=== PATIENT | female | born 1940 | race Caucasian/White ===

== ENCOUNTER 2022-04-22 18:12 | Inpatient (IN) ==
--- NOTE | 2022-04-22 18:29 | Emergency Department Note ---
Fall HPI General Chief Complaint: Trauma Stated Complaint: Fall Time Seen by Provider: 04/22/22 18:19 Source: patient and EMS Mode of arrival: EMS Limitations: no limitations History of Present Illness HPI Narrative: Narrative: Patient presents ED via EMS with complaints of a fall. P states she was walking and she tripped on a curb. She reports pain in her left hip, femur and ankle. Overall pain is rated 4/10. She denies head trauma, loss of consciousness, vision changes, headaches, dizziness, lightheadedness, extremity weakness, extremity numbness, loss of sensation, bowel or bladder incontinence, back pain. She denies any [id number] medication. She denies any other alleviating or aggravating factors. Related Data Home Medications Medication Instructions Recorded Confirmed calcium carbonate 600 mg-vitamin 1 each PO DAILY 07/24/15 04/22/22 D3 20 mcg (800 unit) tablet denosumab 60 mg/mL subcutaneous 60 mg SQ Q6M 07/24/15 04/22/22 syringe metoprolol succinate 25 mg 50 mg PO DAILY 07/24/15 04/22/22 tablet,extended release 24 hr pravastatin 40 mg tablet 40 mg PO HS 07/24/15 04/22/22 calcium carbonate 500 mg calcium 1,200 mg PO QDAY 06/23/20 04/22/22 (1,250 mg) tablet (Calcium 500) Allergies Allergy/AdvReac Type Severity Reaction Status Date / Time No Known Drug Allergies Allergy Verified 04/22/22 18:15 Review of Systems ROS ROS Narrative: Narrative: All systems ED: reviewed and negative except as stated. [facility] Narrative Patient History Narrative: Narrative: Medical/Surgical/Family History All Active Problems (Updated 04/22/22 @ 19:24 by Phillip Pillai DO) Closed intertrochanteric fracture (Acute) Fall (Acute) Tongue pain (Acute) Hyperlipidemia (Acute) Hypertension (Acute) Osteoporosis (Acute) Social History Smoking Status: Never smoker Alcohol Intake Frequency: does not drink Substance Use: does not use Exam Narrative Narrative: Narrative: General Limitations: no limitations General appearance: Present alert Head Head: Present atraumatic and normocephalic Eye Eye: Present PERRL and EOMI Neck Neck: Present normal inspection and full ROM; Absent tenderness Chest Chest: Present normal inspection; Absent tenderness Respiratory Respiratory: Present normal lung sounds bilaterally; Absent respiratory distress Cardiovascular Cardiovascular: Present regular rate and normal rhythm Adbominal Abdominal: Present soft; Absent tenderness Extremities Extremities: Present tenderness (Left hip, femur and left ankle) and joint swelling (Mild left ankle) Back Back: Present normal inspection; Absent L-S tenderness Neurological Neurological: Present oriented X3 Psychiatric Psychiatric: Present normal affect Skin Skin: Present warm (WNL) and normal color Course Course Course Narrative: Patient was evaluated for left lower extremity pain status post fall. X-rays of the left femur and ankle obtained with image reviewed myself no acute bony abnormality. X-ray of the bilateral hips obtained with image reviewed myself which shows a left intertrochanteric fracture. Case was discussed with orthopedic surgery recommend that patient be admitted for surgical correction tomorrow. Patient will be made NPO. Pain management antiemetics have been ordered. Patient is in agreement with plan. Unfortunately do not have any beds available right now so patient will be held in the ED until the morning at which time she will be admitted to Dr. Burrell take him to surgery later in the day. Consultations Consultation #1: Case discussed with on-call orthopedic surgeon, Dr. Burrell, who recommends that patient be admitted and he will perform surgery tomorrow. Time: 19:24 Vital Signs Vital signs: Vital Signs Temperature 99.4 F H 04/22/22 18:15 Pulse Rate 79 04/22/22 18:15 Respiratory Rate 16 04/22/22 18:15 Blood Pressure 114/64 04/22/22 18:15 Pulse Oximetry (%) 97 04/22/22 18:15 Oxygen Delivery Method 04/22/22 18:15 Temperature 99.4 F H 04/22/22 18:15 Pulse Rate 70 04/23/22 03:25 Respiratory Rate 16 04/22/22 18:15 Blood Pressure 113/66 04/23/22 02:16 Pulse Oximetry (%) 95 04/23/22 03:25 Oxygen Delivery Method 04/22/22 18:15 [facility] MDM Narrative Medical decision making narrative: Narrative: Differential Diagnosis Differential Diagnosis: Hip fracture, femur fracture, ankle fracture, ankle sprain, fall Medical Records Medical records reviewed: Yes I reviewed the patient's medical records. Lab Data Result diagrams: 04/22/22 19:43 Labs: Lab Results 04/22/22 04/22/22 Range/Units 19:43 19:48 WBC 8.2 (4.5-11.0) K/mcL RBC 4.10 (3.59-5.38) M/mcL Hgb 12.1 (11.2-15.7) g/dL Hct 35.8 (34.1-44.9) % POC Hct 35.0 L (36-48) MCV 87.3 (80.0-100.0) fL MCH 29.5 (26.0-34.0) pg MCHC 33.8 (31.0-36.0) g/dL RDW 12.8 (11.5-14.5) % Plt Count 146 (140-440) K/mcL MPV 10.4 (7.4-10.4) fL Immature Gran % (Auto) 0.4 (0.0-0.5) % Neut % (Auto) 76.6 (38.0-78.0) % Lymph % (Auto) 14.4 L (15.5-49.0) % Kemper % (Auto) 6.8 (1.0-12.0) % Eos % (Auto) 1.3 (0.0-7.0) % Baso % (Auto) 0.5 (0.0-2.0) % Lymph # (Auto) 1.18 L (1.50-4.80) K/mcL Kemper # (Auto) 0.56 (0.10-0.90) K/mcL Eos # (Auto) 0.11 (0.00-0.70) K/mcL Baso # (Auto) 0.04 (0.00-0.30) K/mcL Immature Gran # 0.03 (0.00-0.05) K/mcl Absolute Neutrophils 6.30 (1.80-8.00) K/mcL POC Sodium 140 (133-145) POC Potassium 3.8 (3.3-5.1) POC Chloride 104 (96-108) POC Total CO2 22.0 (22-30) POC BUN 18 (6-20) POC Creatinine 0.8 (0.6-1.2) POC Glucose 110 H (70-105) POC WB Ioniz Calcium 1.28 (1.16-1.32) Radiology Data Radiology results reviewed: Yes I reviewed the patient's radiology results. Radiology results narrative: X-ray of the bilateral hips obtained with image reviewed myself which revealed a left intertrochanteric fracture X-ray of the left femur and ankle obtained with image reviewed myself with no acute bony abnormality other than the previously mentioned left intertrochanteric fracture. Chest x-ray obtained with image reviewed myself with no acute cardiopulmonary findings Core Measures AMI Core Measures Followed: Yes Discharge Plan Patient/Caregiver Discharge Instructions Pt seen by TAP OUT OPERATOR/PA only: No Clinical Impression: Closed intertrochanteric fracture Qualifiers: Encounter type: initial encounter Fracture alignment: displaced Laterality: left Qualified Code(s): S72.142A - Displaced intertrochanteric fracture of left femur, initial encounter for closed fracture Fall Qualifiers: Encounter type: initial encounter Qualified Code(s): W19.XXXA - Unspecified fall, initial encounter Patient Disposition: Xfer As Outpt/Obs ([facility]) Condition: Good Follow up with: Chrissie Logan MD [Primary Care Provider] - Prescriptions: No Action pravastatin 40 MG tablet 40 mg PO HS metoprolol succinate 25 MG tablet extended release 24 hr 50 mg PO DAILY denosumab 60 MG/ML syringe 60 mg SQ Q6M calcium carbonate-vitamin D3 1 EACH tablet 1 each PO DAILY calcium carbonate [Calcium 500] 500 mg calcium (1,250 mg) Tablet 1,200 mg PO QDAY
[2022-04-22] MEDS ORDERED: HYDROCODONE/APAP 7.5/325MG TABLET PO ONE (18:45)
--- NOTE | 2022-04-22 19:15 | XRay Report ---
INDICATION: hip fx TECHNIQUE: AP portable semiupright chest x-ray COMPARISON: Previous examination dated 02/16/2016 FINDINGS: Lungs:Lungs are negative. No focal pulmonary parenchymal infiltrate or mass Heart, vascular:No significant cardiomegaly. Pulmonary vascularity is normal. No pulmonary edema or pulmonary congestion Mediastinum, brian:No mediastinal widening. No hilar mass Pleura:No pleural fluid. No pleural-based mass or calcification Musculoskeletal:Surgical clips in the left axilla IMPRESSION: No acute abnormality Interpreted and Authenticated by: Eladio George 04/22/22
--- NOTE | 2022-04-22 19:17 | XRay Report ---
INDICATION: pain TECHNIQUE: AP pelvis. Bilateral crosstable lateral hip COMPARISON: None. FINDINGS: Impacted intertrochanteric left hip fracture with varus angulation. Right hip is negative. Pelvis is negative. No fracture. No lytic lesion. Sacrum is negative IMPRESSION: Intertrochanteric left hip fracture Interpreted and Authenticated by: Eladio George 04/22/22
--- NOTE | 2022-04-22 19:18 | XRay Report ---
INDICATION: pain TECHNIQUE: AP and crosstable lateral left femur COMPARISON: Pelvis and bilateral hips dated 04/22/2022 FINDINGS: Impacted left intertrochanteric hip fracture. Left femur is otherwise negative. No other abnormality IMPRESSION: 1. Intertrochanteric left hip fracture 2. Otherwise negative left femur Interpreted and Authenticated by: Eladio George 04/22/22
--- NOTE | 2022-04-22 19:19 | XRay Report ---
INDICATION: pain TECHNIQUE: AP, oblique, lateral left ankle COMPARISON: None FINDINGS: Skeletal: Distal tibia and fibula are negative. No fracture. Talus and calcaneus are normal. No osteochondral lesion of the talus Joint spaces: Tibiotalar joint space is normal. Subtalar joint is normalNo significant tibiotalar joint effusion Periarticular soft tissue: No significant periarticular soft tissue swelling. No soft tissue gas or radiopaque foreign body IMPRESSION: Negative left ankle Interpreted and Authenticated by: Eladio George 04/22/22
[2022-04-22] MEDS ORDERED: ONDANSETRON 4 MG/2 ML VIAL IV ONE (19:28)
[2022-04-22] MEDS ORDERED: fentaNYL 100 MCG/2 ML VIAL IV PRN (19:28)
[2022-04-22] MEDS: 0.9 % SODIUM CHLORIDE 1,000 ML IV SCH (19:35)
[2022-04-22 19:50] LABS: POC Calcium, Ionized 1.28 (1.16-1.32); POC Creatinine 0.8 (0.6-1.2); POC Potassium 3.8 (3.3-5.1)
[2022-04-22 20:13] LABS: Basophils # (Auto) 0.04 K/mcL (0.00-0.30); Basophils % (Auto) 0.5 % (0.0-2.0); Eosinophils # (Auto) 0.11 K/mcL (0.00-0.70); Eosinophils % (Auto) 1.3 % (0.0-7.0); Hematocrit 35.8 % (34.1-44.9); Hemoglobin 12.1 g/dL (11.2-15.7); Lymphocytes # (Auto) 1.18 K/mcL (1.50-4.80); Lymphocytes % (Auto) 14.4 % (15.5-49.0); Mean Cell Volume 87.3 fL (80.0-100.0); Mean Corpuscular HGB Conc 33.8 g/dL (31.0-36.0); Mean Platelet Volume 10.4 fL (7.4-10.4); Monocytes # (Auto) 0.56 K/mcL (0.10-0.90); Monocytes % (Auto) 6.8 % (1.0-12.0); Neutrophils % (Auto) 76.6 % (38.0-78.0); Platelet Count 146 K/mcL (140-440); Red Cell Distribution Width 12.8 % (11.5-14.5); WBC 8.2 K/mcL (4.5-11.0)
[2022-04-23] MEDS: 0.9 % SODIUM CHLORIDE 1,000 ML IV SCH (08:43)
[2022-04-23 09:00] LABS: Appearance,Urine Clear (Clear); Bacteria,Urine 0 /hpf (0); Bilirubin,Urine Negative (Negative); Color,Urine Yellow; Culture Indicated,Urine No; Glucose,Urine (UA) Negative (Negative); Ketones,Urine 15 mg/dL mg/dL (Negative); Leukocyte Esterase,Urine Negative /uL (Negative); Mucus,Urine Mod /hpf; Nitrate,Urine Negative (Negative); Protein,Urine Negative (Negative); Urine Blood Small ery/mcL (Negative); Urine Hyaline Cast 1 /lph (0-2); Urine RBC 3 /hpf (0-3); Urine Squamous Epithelial Cell 1 /hpf (0-4); Urine WBC 2 /hpf (0-4); Urobilinogen,Urine Normal
[2022-04-23] MEDS ORDERED: SCOPOLAMINE 1 PATCH PATCH TOPICAL PRN (10:18)
[2022-04-23] MEDS ORDERED: IPRATROPIUM/ALBUTEROL 3 ML AMPUL.NEB NEB PRN ×2 (10:18→16:30)
[2022-04-23] MEDS ORDERED: LIDOCAINE HCL/PF 100 MG/5 ML SYRINGE IV ONE (15:55)
[2022-04-23] MEDS ORDERED: KETAMINE 50 MG/ML Syringe (ANEST) IV ONE (15:55)
[2022-04-23] MEDS ORDERED: HYDROmorphone 1 MG/ML SYRINGE ONE (15:55)
[2022-04-23] MEDS ORDERED: fentaNYL 100 MCG/2 ML VIAL IV ONE (15:55)
[2022-04-23] MEDS ORDERED: ONDANSETRON 4 MG/2 ML VIAL ONE (15:55)
[2022-04-23] MEDS ORDERED: PROPOFOL 200 MG/20 ML VIAL IV ONE (15:55)
[2022-04-23] MEDS ORDERED: GLYCOPYRROLATE 0.2 MG/ML VIAL IV ONE (15:55)
[2022-04-23] MEDS ORDERED: TRANEXAMIC ACID 1,000 MG/10 ML VIAL ONE (15:55)
[2022-04-23] MEDS ORDERED: DEXAMETHASONE 10 MG/ML VIAL ONE (15:55)
[2022-04-23] MEDS ORDERED: ceFAZolin 2 GM in DEXTROSE 5% IN WATER 50 ML IV SCH (16:00)
[2022-04-23] MEDS ORDERED: fentaNYL 100 MCG/2 ML VIAL IV PRN (16:30)
[2022-04-23] MEDS ORDERED: METOPROLOL TARTRATE 5 MG/5 ML VIAL IV PRN (16:30)
[2022-04-23] MEDS ORDERED: METHOCARBAMOL 1,000 MG/10 ML VIAL IV PRN (16:30)
[2022-04-23] MEDS ORDERED: NALOXONE HCL 0.4 MG/ML VIAL IV PRN (16:30)
[2022-04-23] MEDS ORDERED: ONDANSETRON 4 MG/2 ML VIAL IV PRN ×3 (16:30→16:45)
[2022-04-23] MEDS ORDERED: MEPERIDINE 25 MG/ML VIAL IV PRN (16:30)
[2022-04-23] MEDS ORDERED: ACETAMINOPHEN 1,000 MG/100 ML BAG IV ONE (16:30)
[2022-04-23] MEDS ORDERED: HYDROmorphone 0.5 MG/0.5 ML SYRINGE IV PRN (16:30)
[2022-04-23] MEDS ORDERED: LACTATED RINGERS 1,000 ML IV SCH (16:30)
[2022-04-23] MEDS ORDERED: LABETALOL 5 MG/ML ML IV PRN (16:30)
[2022-04-23] MEDS ORDERED: LACTATED RINGERS 250 ML IV PRN (16:30)
[2022-04-23] MEDS ORDERED: TEMAZEPAM 15 MG CAPSULE PO PRN (16:45)
[2022-04-23] MEDS ORDERED: ACETAMINOPHEN 325 MG TABLET PO PRN (16:45)
[2022-04-23] MEDS ORDERED: FLEETS ADULT ENEMA PR PRN (16:45)
[2022-04-23] MEDS ORDERED: POLYETHYLENE GLYCOL 3350 17 GM PACKET PO PRN (16:45)
[2022-04-23] MEDS ORDERED: BISACODYL 10 MG SUPP.RECT PR PRN (16:45)
[2022-04-23] MEDS ORDERED: HYDROmorphone 1 MG/ML SYRINGE IV PRN (16:45)
[2022-04-23] MEDS ORDERED: MAGNESIUM HYDROXIDE 30 ML ORAL.SUSP PO PRN (16:45)
[2022-04-23] MEDS ORDERED: TRANEXAMIC ACID 1,000 MG/10 ML VIAL IV ONE (16:45)
--- NOTE | 2022-04-23 16:58 | XRay Report ---
INDICATION: hip nail TECHNIQUE: Open reduction and internal fixation of left intertrochanteric hip fracture. Gamma nail placement performed. 0.3 minutes fluoroscopy and 3.19 mGy exposure utilized IMPRESSION: 1. Open reduction and internal fixation of intertrochanteric left hip fracture 2. Intraoperative fluoroscopy and spot films as above Interpreted and Authenticated by: Eladio George 04/23/22
--- NOTE | 2022-04-23 16:58 | Brief Operative Note ---
Brief Operative Note Date of procedure: 04/23/22 Pre-op diagnosis: Left hip fracture Post-op diagnosis: same Procedure: left hip orif gamma nail Grafts/Implants: Yes Anesthesia: GETA Complications: none Surgeon: Gene Tavarez Parts Designer: Umberto Miller Estimated blood loss (cc): 130 Specimens Removed/Pathology: none sent Condition: stable Disposition: PACU
[2022-04-23] MEDS ORDERED: DENOSUMAB 60 MG/ML SYRINGE SQ SCH (17:00)
--- NOTE | 2022-04-23 17:42 | XRay Report ---
INDICATION: Post-Op Total Hip TECHNIQUE: AP pelvis. AP and crosstable lateral left hip COMPARISON: Preoperative evaluation dated 04/22/2022 FINDINGS: Status post open reduction and internal fixation of left intertrochanteric hip fracture. Gamma nail configuration utilized. Fractures of the greater and lesser trochanters are demonstrated. Alignment is essentially anatomic. There is soft tissue gas and skin kandy. 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 Pelvis is negative. No pelvic fracture. No sacral fracture. IMPRESSION: Open reduction and internal fixation of left intertrochanteric hip fracture. Fractures of the greater and lesser trochanters are demonstrated. Interpreted and Authenticated by: Eladio George 04/23/22
[2022-04-23] MEDS: LACTATED RINGERS 1,000 ML IV SCH ×2 (17:46→22:26)
[2022-04-23] MEDS: SIMVASTATIN 20 MG TABLET PO SCH (20:35)
[2022-04-23] MEDS: DOCUSATE SODIUM 100 MG CAPSULE PO SCH (20:35)
[2022-04-23] MEDS: ASPIRIN 81 MG TAB.CHEW CHEWED SCH (20:35)
[2022-04-23] MEDS: SENNOSIDES 1 TABLET PO SCH (20:35)
[2022-04-23] MEDS: ceFAZolin 1 GM VIAL IV SCH (23:45)
[2022-04-24] MEDS: LACTATED RINGERS 1,000 ML IV SCH ×2 (04:40→12:00)
--- NOTE | 2022-04-24 08:18 | Orthopedic Progress Note ---
SUBJECTIVE Subjective Patient information: Note initiated : 04/24/22 at 8:16 am Service Date, if different from initiated Date: [] Patient: Rica Allen 81 y/o F admitted on 04/23/22 for Gamma Hip Nailing. Chief Complaint: [no nausea] Principal diagnosis: left intertrochanteric hip fx Constitutional Vitals: Vital Signs Temp Pulse Resp BP Pulse Ox O2 Del Method O2 Flow Rate 98.1 F 80 16 146/62 95 0 04/24/22 03:18 04/24/22 03:18 04/24/22 03:18 04/24/22 03:18 04/24/22 06:41 04/24/22 06:41 04/23/22 17:24 Period Temp Pulse Resp BP Sys/Jackson Pulse Ox O2 Del Method O2 Flow Rate Last 24 Hr 97.6 F-98.8 F 76-96 16-20 102-146/56-70 93-99 Room Air-Room Air 0-6 Intake and Output 04/23/22 04/24/22 04/24/22 21:59 05:59 13:59 Intake Total 1352 1118 Output Total 550 800 Balance 802 318 Weight 134 lb 9.6 oz Intake & Output: Intake & Output 04/23/22 04/24/22 04/24/22 21:59 05:59 13:59 Intake Total 1352 1118 Output Total 550 800 Balance 802 318 Weight 134 lb 9.6 oz Intake: IV 152 998 Lactated Ringers 1,000 ml @ 100 2 998 mls/hr IV .Q10H SUSANNAH Rx#: [id number] Ancef 2 gm In Dextrose 5% in 50 Water 50 ml @ 100 mls/hr IV PREOP SUSANNAH Rx#:[id number] Oral 120 IV - Manual Only 1200 Output: Urine Catheter Amount 450 800 Void Amount 0 Estimated Blood Loss 100 Other: Meal Dinner Breakfast Percent of Meal Consumed 25% 100% Feeding Ability Independent Urine Appearance Clear Clear Urine Color Pale Straw Urine Odor Normal Normal Extremities Exam Extremities exam: Present normal capillary refill and neurovascular intact Neurological Exam Neurological exam: Present alert and CN II-XII intact OBJ DATA Labs CBC & Chem 7: 04/24/22 05:25 Labs: Abnormal Lab Results 04/24/22 04/23/22 04/22/22 05:25 08:05 19:48 Hct 31.1 L POC Hct 35.0 L Lymph % (Auto) Lymph # (Auto) POC Glucose 110 H Urine Ketones 15 mg/dl A Urine Occult Blood Small A Urine Mucus Mod A 04/22/22 19:43 Hct POC Hct Lymph % (Auto) 14.4 L Lymph # (Auto) 1.18 L POC Glucose Urine Ketones Urine Occult Blood Urine Mucus Meds: Medications Acetaminophen (Acetaminophen 325 Mg Tablet) 650 mg PO Q6HP PRN; Protocol PRN Reason: Per Pain Protocol/Fever > 101 Hydrocodone Bitart/Acetaminophen (Hydrocodone/Apap 10/325mg Tablet) 1 - 2 tab PO Q4HP PRN; Protocol PRN Reason: Per Pain Protocol Aspirin (Aspirin 81 Mg Tab.Chew) 81 mg CHEWED BID [facility] Last Admin: 04/23/22 20:35 Dose: 81 mg Bisacodyl (Bisacodyl 10 Mg Supp.Rect) 10 mg FL Q2-3DAYS PRN PRN Reason: Constipation Calcium Carbonate/Glycine (Calcium (Oyster Shell) 500 Mg Tablet) 1,000 mg PO QDAY [facility] Calcium/Vitamin D (Calcium W/Vit D3 500 Mg Tablet) 500 mg PO DAILY [facility] Docusate Sodium (Docusate Sodium 100 Mg Capsule) 100 mg PO BID [facility] Last Admin: 04/23/22 20:35 Dose: 100 mg Fentanyl (Fentanyl 100 Mcg/2 Ml Vial) 25 mcg IV Q2HP PRN; Protocol PRN Reason: Per Pain Protocol Last Admin: 04/23/22 01:43 Dose: 25 mcg Hydromorphone HCl (Hydromorphone 1 Mg/Ml Syringe) 0.5 - 2 mg IV Q2HP PRN; Protocol PRN Reason: Per Pain Protocol Lactated Ringer's (Lactated Ringers) 1,000 mls @ 100 mls/hr IV .Q10H [facility] Last Admin: 04/24/22 04:40 Dose: Not Given Magnesium Hydroxide (Magnesium Hydroxide 30 Ml Oral.Susp) 30 ml PO BIDP PRN PRN Reason: Constipation Metoprolol Succinate (Metoprolol Succinate 25 Mg Tab.Xl.24h) 50 mg PO DAILY [facility] Ondansetron HCl (Ondansetron 4 Mg/2 Ml Vial) 4 mg IV Q4HP PRN; Protocol PRN Reason: Nausea And Vomiting Ondansetron HCl (Ondansetron 4 Mg/2 Ml Vial) 4 mg IV Q4HP PRN; Protocol PRN Reason: Nausea And Vomiting Polyethylene Glycol (Polyethylene Glycol 3350 17 Gm Packet) 17 gm PO DAILYP PRN PRN Reason: Constipation Senna (Sennosides 1 Tablet) 2 tab PO HS [facility] Last Admin: 04/23/22 20:35 Dose: 2 tab Simvastatin (Simvastatin 20 Mg Tablet) 20 mg PO HS [facility] Last Admin: 04/23/22 20:35 Dose: 20 mg Sodium Biphosphate/Sodium Phosphate (Fleets Adult Enema) 1 dose FL Q3-4DAYS PRN PRN Reason: Constipation Temazepam (Temazepam 15 Mg Capsule) 15 mg PO HSP PRN PRN Reason: Insomnia A/P Assessment and plan (1) Closed intertrochanteric fracture: Status: Acute Comment: doing better Qualifiers: Encounter type: initial encounter Fracture alignment: displaced Laterality: left Qualified Code(s): S72.142A - Displaced intertrochanteric fracture of left femur, initial encounter for closed fracture Plan dc to home or snf Narrative Plan of Treatment: see how well she walks Time Spent With Patient Time: Total time spent is greater than 50% in coordination of care (as documented) at patient's floor/unit and/or counseling patient: Total time spent with greater than 50% in coordination of care (as documented) at patient's floor/unit and/or counseling patient:: less than 15 minutes
[2022-04-24] MEDS: ASPIRIN 81 MG TAB.CHEW CHEWED SCH ×2 (08:42→20:23)
[2022-04-24] MEDS: HYDROcodone/APAP 10/325MG TABLET PO PRN ×2 (08:42→18:51)
[2022-04-24] MEDS: CALCIUM W/VIT D3 500 MG TABLET PO SCH (08:42)
[2022-04-24] MEDS: METOPROLOL SUCCINATE 25 MG TAB.XL.24H PO SCH (08:42)
[2022-04-24] MEDS: CALCIUM (OYSTER SHELL) 500 MG TABLET PO SCH (08:42)
[2022-04-24] MEDS: DOCUSATE SODIUM 100 MG CAPSULE PO SCH ×2 (08:42→20:23)
[2022-04-24] MEDS: ceFAZolin 1 GM VIAL IV SCH (08:49)
[2022-04-24] MEDS: SIMVASTATIN 20 MG TABLET PO SCH (20:23)
[2022-04-24] MEDS: SENNOSIDES 1 TABLET PO SCH (20:23)
[2022-04-25] MEDS: ASPIRIN 81 MG TAB.CHEW CHEWED SCH (08:33)
[2022-04-25] MEDS: METOPROLOL SUCCINATE 25 MG TAB.XL.24H PO SCH (08:33)
[2022-04-25] MEDS: CALCIUM (OYSTER SHELL) 500 MG TABLET PO SCH (08:33)
[2022-04-25] MEDS: HYDROcodone/APAP 10/325MG TABLET PO PRN (08:33)
[2022-04-25] MEDS: DOCUSATE SODIUM 100 MG CAPSULE PO SCH (08:33)
[2022-04-25] MEDS: CALCIUM W/VIT D3 500 MG TABLET PO SCH (08:33)
--- NOTE | 2022-04-26 07:52 | Operative Note ---
DATE OF OPERATION: 04/23/2022 PREOPERATIVE DIAGNOSIS: Left intertrochanteric hip fracture. POSTOPERATIVE DIAGNOSIS: Left intertrochanteric hip fracture. PROCEDURE: Left intertrochanteric hip fracture open reduction and internal fixation with a gamma nail. SURGEON: Gene Tavarez M.D. [employer] PRINTING MACHINIST: Diomedes Louise PA-C. This providers expertise and technical skill were required throughout the case. The NEIL assisted with preoperative coordination, intraoperative retraction, wound closure, and dressing and splint application, as well as postoperative documentation and care coordination. ANESTHESIA: General LMA anesthesia. ESTIMATED BLOOD LOSS: 150 mL BLOOD PRODUCTS GIVEN: None. COMPLICATIONS: None. IMAGES: Images were saved and taken during the case. DESCRIPTION OF PROCEDURE: The patient was brought to the operating room, put to sleep with general LMA anesthesia. Once asleep, the patient had the left hip sterilely prepped and draped in the usual sterile fashion. A superior 1" incision of the greater trochanter was made. A starting pin was placed in the intramedullary region. I reamed over the side and then I placed a short gamma nail. This was positioned at the inferior 50% and the posterior 50% of the head. An 85 mm screw was used for the lag screw. We took off the traction and compressed the screw and then locked it into place. Distally, we locked the ashu into place as well. Her bone quality was fairly good without tumors and fracture was anatomically reduced. We irrigated thoroughly and then closed the portals with 2-0 Vicryl and kandy. Sterile bandage was applied. The patient tolerated this well. RBH:basia Job ID: [id number] Doc ID: [id number] Gene Tavarez MD
--- NOTE | 2022-04-26 09:28 | Consultation ---
DATE OF CONSULTATION: 04/23/2022 REASON FOR CONSULTATION: The patient had a recent fall complaining of significant left hip pain and was unable to ambulate. This was a same-level fall She was unable to ambulate afterwards. She arrived by ambulance. The patient was seen in the emergency room and had x-rays and was diagnosed appropriately with an intertrochanteric left hip fracture, displaced. ALLERGIES: SHE HAS NO KNOWN DRUG ALLERGIES. MEDICATION LIST: 1. Calcium. 2. Metoprolol. 3. Pravastatin. REVIEW OF SYSTEMS: Negative for chest pain or shortness of breath. PHYSICAL EXAMINATION: GENERAL: The patient is alert and oriented x3, cooperative, and gives a good history. HEENT: Head is atraumatic. Extraocular movements intact. LUNGS: Clear to auscultation. CARDIOVASCULAR: Regular rate and rhythm. EXTREMITIES: Shortened and externally rotated on the left extremity, but pink and perfused. IMPRESSION AND PLAN: X-ray showed a left intertrochanteric hip fracture: The treatment will be a left hip open reduction and internal fixation with a gamma nail. She understands the risks and benefits and agrees to proceed. NEHEMIASH:tatyana Job ID: [id number] Doc ID: [id number] Gene Tavarez MD
--- NOTE | 2022-04-26 15:56 | EKG ---
[facility] Test Date: 2022-04-23 Pat Name: Rica Allen Department: ED Room: Gender: Female Change Management Manager: JESUS : 1940 Requested By: Phillip Pillai Order Number: [id number] Reading MD: Eladio Lewis M.D. Measurements Intervals [place] Rate: 77 P: 81 CT: 155 QRS: 15 QRSD: 120 T: 20 QT: 395 QTc: 448 Interpretive Statements Sinus rhythm INCOMPLETE RIGHT JEMMA BRANCH BLOCK Electronically Signed On 04-26-2022 15:56:09 PDT by Eladio Lewis M.D. /store/[email or web address]/[id number]
== END 2022-04-25 15:15 | disposition home or self-care (01) | DRG 482 ==
LOC: ED 18:12 → MEDSUR 04-23 08:26
PROVIDERS: ADMIT Orthopaedic Surgery; ATTEND Orthopaedic Surgery